=== PATIENT | male | born 1995 | race Caucasian/White ===

== ENCOUNTER 2019-09-08 12:49 | Emergency (ER) | payer OTHER ==
[~2019-09-08] VITALS: Ht 185.4 cm; Wt 69.8 kg
[~2019-09-08 12:49] MED LIST: ACETAMINOPHEN500 M1 PO; NORCO 5-325 TA1 EACH PO
--- OUTSIDE RECORDS SUMMARY | 2019-09-08 12:52 | XMS ---
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 Pearl has no Care Guidelines for this patient. Honey VISIT COUNT (12 MO.) 1 [facility] Pablo TOTAL 1 NOTE: Visits indicate total known visits. ED/C VISIT TRACKING (12 MO.) 09/08/2019 12:50 [facility] [place] TYPE: Emergency COMPLAINT: - LT FOOT INJURY INPATIENT VISIT TRACKING (12 MO.) No inpatient visits to display in this time frame [email or web address]
[2019-09-08] MEDS ORDERED: TRAMADOL HCL50 MG PO (13:52)
== END 2019-09-08 13:58 | disposition home or self-care (01) ==
LOC: ED 12:49
DX: S91.332A Puncture wound without foreign body, left foot, initial encounter (principal); W22.8XXA Striking against or struck by other objects, initial encounter
CPT/HCPCS: 73630; 99283-25

== ENCOUNTER 2020-09-10 22:43 | Emergency (ER) | payer OTHER ==
[~2020-09-10] VITALS: Ht 185.4 cm; Wt 69.8 kg
[~2020-09-10 22:43] MED LIST changes: +TRAMADOL HCL50 MG PO
== END 2020-09-11 01:44 | disposition home or self-care (01) ==
LOC: ED 22:43
DX: R11.2 Nausea with vomiting, unspecified (principal)
CPT/HCPCS: 74177; 80053; 81001; 83690; 85025; 96375; 96376; 99284-25; C9113; J2405; J7030; Q9967

== ENCOUNTER 2021-09-16 00:12 | Emergency (ER) | payer OTHER ==
[~2021-09-16] VITALS: Ht 185.4 cm; Wt 68.0 kg
--- NOTE | 2021-09-18 17:09 | EKG ---
[facility] [address] [facility] [place] [address] Signed Normal sinus rhythm Normal ECG No previous ECGs available Confirmed by MARY MARTINEZ MD ([id number]) on 09/18/2021 5:08:52 PM Electronically Signed By: MARY MARTINEZ MD 09/18/21 1709 PATIENT NAME: SLIM PELLETIER Electrocardiogram DATE OF : [birth year] PHYSICIAN: MARY MARTINEZ MD REPORT #: [id number] REPORT IS CONFIDENTIAL AND NOT TO BE RELEASED WITHOUT AUTHORIZATION
== END 2021-09-16 06:58 | disposition home or self-care (01) ==
LOC: ED 00:12
DX: F10.129 Alcohol abuse with intoxication, unspecified (principal); E87.6 Hypokalemia; R11.10 Vomiting, unspecified
CPT/HCPCS: 36415; 70450; 71045; 80048; 80053; 81001; 82803; 83735; 84132; 85025; 85610; 85730; 93005; 93010; 96374; 96375; 99285-25; A9270; G0480; J2405; J3480; J7121

== ENCOUNTER 2021-10-01 05:21 | Emergency (ER) | payer OTHER ==
[~2021-10-01] VITALS: Ht 185.4 cm; Wt 67.6 kg
--- OUTSIDE RECORDS SUMMARY | 2021-10-01 05:28 | XMS ---
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 Pearl has no Care Guidelines for this patient. [facility] [facility] NOTE: Visits indicate total known visits. ED/C VISIT TRACKING (12 MO.) [facility] COMPLAINT: - BLOOD IN URINE 09/16/2021 00:12 [place] [place] TYPE: Emergency COMPLAINT: - VOMITING, ALCOHOL USE DIAGNOSES: - Hypokalemia - Alcohol abuse with intoxication, unspecified - Vomiting, unspecified INPATIENT VISIT TRACKING (12 MO.) No inpatient visits to display in this time frame [email or web address]
== END 2021-10-01 08:15 | disposition home or self-care (01) ==
LOC: ED 05:21
DX: R31.0 Gross hematuria (principal)
CPT/HCPCS: 36415; 51702; 74176; 80048; 81001; 84153; 85025; 85610; 99284-25

== ENCOUNTER 2021-11-04 17:01 | Emergency (ER) | payer OTHER ==
[~2021-11-04] VITALS: Ht 185.4 cm; Wt 67.6 kg
[2021-11-04] MEDS ORDERED: CYCLOBENZAPRINE10 MG PO (20:52)
== END 2021-11-04 21:23 | disposition home or self-care (01) ==
LOC: ED 17:01
DX: S39.011A Strain of muscle, fascia and tendon of abdomen, initial encounter (principal); F32.A Depression, unspecified; H57.02 Anisocoria; X58.XXXA Exposure to other specified factors, initial encounter
CPT/HCPCS: 36415; 70450; 74176; 80053; 81001; 84443; 85025; 99285-25; G0480

== ENCOUNTER 2022-11-09 17:33 | Emergency (ER) | payer OTHER ==
[~2022-11-09] VITALS: Ht 185.4 cm; Wt 75.3 kg
[~2022-11-09 17:33] MED LIST changes: +CYCLOBENZAPRINE10 MG PO
[2022-11-09 20:54] VITALS: BP 120/75
== END 2022-11-09 20:55 | disposition home or self-care (01) ==
LOC: ED 17:33
DX: R45.851 Suicidal ideations (principal); R05.3 Chronic cough; D72.829 Elevated white blood cell count, unspecified
CPT/HCPCS: 36415; 80053; 81003; 84443; 85025; 87502; 99284; G0480; U0002